=== PATIENT | female | born 1980 | race Caucasian/White ===

== ENCOUNTER 2022-11-06 07:26 | Day surgery (SDC) | payer MEDICAID ==
[2022-11-06] MEDS ORDERED: fentaNYL 100 MCG/2 ML SDV ONE (07:30)
[2022-11-06] MEDS ORDERED: Midazolam 1 MG/ML 2 ML SDV ONE (07:31)
[2022-11-06] MEDS ORDERED: Propofol 200 MG/20 ML SDV ONE ×2 (07:31→10:12)
[2022-11-06] MEDS: Acetaminophen 500 MG Tab PO ONE (08:17)
[2022-11-06] MEDS: Lactated Ringers 1,000 ML IV SCH (08:36)
[2022-11-06] MEDS: ceFAZolin 2 GM in Premix Bag 1 BAG IV ONE (10:40)
[2022-11-06] MEDS: Bupivacaine 0.5% 50 ML MDV ONE (14:01)
[2022-11-06] MEDS: Lidocaine 1% with EPINEPHrine 1:100,000 50 ML MDV ONE (14:01)
[2022-11-06] MEDS: Bacitracin Oint 1 GM U/D Packet ONE (14:02)
== END 2022-11-06 13:00 | disposition home or self-care (01) ==
LOC: JP.SDS 07:26
PROVIDERS: ATTEND Student in an Organized Health Care Education/Training Program
DX: L72.0 Epidermal cyst (principal); F90.9 Attention-deficit hyperactivity disorder, unspecified type; E03.9 Hypothyroidism, unspecified; R53.83 Other fatigue; G47.00 Insomnia, unspecified; F32.9 Major depressive disorder, single episode, unspecified; Z91.011 Allergy to milk products; F17.290 Nicotine dependence, other tobacco product, uncomplicated
CPT/HCPCS: 11403; 12032; 88305; A9270; J0690; J2250; J2704; J3010; J3490; J7120

== ENCOUNTER 2023-05-09 12:38 | Emergency (ER) | payer MEDICAID, OTHER ==
[2023-05-09] MEDS ORDERED: Ketorolac 30 MG/ML SDV IM ONE (13:44)
== END 2023-05-09 15:21 | disposition home or self-care (01) ==
LOC: JP.ED 12:38
DX: M54.41 Lumbago with sciatica, right side (principal); E66.9 Obesity, unspecified; Z68.39 Body mass index [BMI] 39.0-39.9, adult; Z91.011 Allergy to milk products; Z91.018 Allergy to other foods
CPT/HCPCS: 96372; 99283; J1885

== ENCOUNTER 2024-04-20 21:19 | Emergency (ER) | payer OTHER ==
[2024-04-20] MEDS ORDERED: PARoxetine 20 MG Tab PO ONE (22:07)
== END 2024-04-20 22:31 | disposition home or self-care (01) ==
LOC: JP.ED 21:19
DX: U07.1 COVID-19 (principal); E66.9 Obesity, unspecified; Z90.710 Acquired absence of both cervix and uterus; Z79.899 Other long term (current) drug therapy; Z91.018 Allergy to other foods; Z91.011 Allergy to milk products; Z68.32 Body mass index [BMI] 32.0-32.9, adult
CPT/HCPCS: 87428-QW; 99283

== ENCOUNTER 2024-06-07 10:29 | Emergency (ER) | payer OTHER ==
[2024-06-07] MEDS: fentaNYL 50 MCG/ML SDV IVPUSH ONE (10:45)
[2024-06-07] MEDS: Sodium Chloride 0.9% 1,000 ML IV ONE (10:52)
[2024-06-07 10:54] LABS: BASOPHILS ABSOLUTE AUTO 0.05 K/uL (0.00-0.10); BASOPHILS PERCENT AUTO 0.7 % (0.1-1.3); EOSINOPHILS ABSOLUTE AUTO 0.09 K/uL (0.00-0.40); EOSINOPHILS PERCENT AUTO 1.2 % (0.0-5.4); HEMATOCRIT 39.7 % (34.3-46.0); HEMOGLOBIN 12.9 g/dL (11.2-15.5); IMMATURE GRAN ABSOLUTE AUTO 0.03 K/uL (0.00-0.23); IMMATURE GRAN PERCENT AUTO 0.4 % (0.0-0.7); LYMPHOCYTES ABSOLUTE AUTO 1.81 K/uL (0.8-3.3); LYMPHOCYTES PERCENT AUTO 24.6 % (11.4-47.7); MEAN CORPUSCULAR HEMOGLOBIN 30.6 pg (31.6-35.5); MEAN CORPUSCULAR HGB CONC 32.5 g/dL (31.6-35.5); MEAN CORPUSCULAR VOLUME 94.1 fL (81.4-99.0); MONOCYTES ABSOLUTE AUTO 0.51 K/uL (0.20-0.90); MONOCYTES PERCENT AUTO 6.9 % (3.3-12.6); NEUTROPHILS ABSOLUTE AUTO 4.87 K/uL (1.0-7.6); NEUTROPHILS PERCENT AUTO 66.2 % (40.0-78.1); PLATELET COUNT,PLT 298 K/uL (130-375); RED BLOOD CELL COUNT 4.22 M/uL (3.77-5.24); WHITE BLOOD CELL COUNT,WBC 7.4 K/uL (3.2-11.0)
[2024-06-07] MEDS: Diphtheria,Pertussis(Acell),Tetanus Vaccine 0.5 ML Syringe IM ONE (11:00)
[2024-06-07] MEDS: ceFAZolin 2 GM in Premix Bag 1 BAG IV ONE (11:00)
[2024-06-07 11:15] LABS: A/G RATIO 1.2 (1.2-2.2); ALANINE AMINOTRANSFERASE,ALT 24 U/L (12-78); ALBUMIN 3.9 g/dL (3.4-5.0); ALKALINE PHOSPHATASE 76 U/L (46-116); ANION GAP 6.4 mmol/L (5.0-14.0); ASPARTATE AMNIOTRANSFERASE,AST 19 U/L (15-37); BILIRUBIN TOTAL 0.5 mg/dL (0.2-1.0); BLOOD UREA NITROGEN,BUN 12 mg/dL (7-18); CALCIUM 8.5 mg/dL (8.5-10.1); CARBON DIOXIDE,CO2 30 mmol/L (21-32); CHLORIDE,CL 104 mmol/L (100-108); CREATININE 0.8 mg/dL (0.6-1.0); EST CRCL DRUG DOSING (CG) 74.23 mL/min; ESTIMATED GFR 93 mL/min (>60); GLUCOSE RANDOM 122 mg/dL (74-106); POTASSIUM,K 3.8 mmol/L (3.6-5.2); PROTEIN TOTAL,TP 7.2 g/dL (6.4-8.2); SODIUM,NA 140 mmol/L (140-148)
[2024-06-07] MEDS ORDERED: Propofol 200 MG/20 ML SDV ONE (11:40)
== END 2024-06-07 13:00 ==
LOC: JP.ED 10:29
DX: S82.51XB Displaced fracture of medial malleolus of right tibia, initial encounter for open fracture type I or II (principal); S82.831B Other fracture of upper and lower end of right fibula, initial encounter for open fracture type I or II; E03.9 Hypothyroidism, unspecified; E66.9 Obesity, unspecified; Z68.32 Body mass index [BMI] 32.0-32.9, adult; Z90.710 Acquired absence of both cervix and uterus; Z91.011 Allergy to milk products; Z91.018 Allergy to other foods; Z79.899 Other long term (current) drug therapy; X58.XXXA Exposure to other specified factors, initial encounter; Z23 Encounter for immunization
CPT/HCPCS: 27788; 36415; 73600; 80053; 85025; 90471; 90715; 96365; 96375; 99156; 99157; 99285; J0690; J2704; J3010; 93010